=== PATIENT | female | born 1975 | race American Indian/Alaskan Native ===

== ENCOUNTER 2020-02-22 15:23 | Outpatient (CLI) | payer OTHER | END 2020-02-22 15:24 | disposition home or self-care (01) | LOC: SPVWC 15:23 | PROVIDERS: ATTEND Nurse Practitioner Family | DX: R92.8 Other abnormal and inconclusive findings on diagnostic imaging of breast (principal) | CPT/HCPCS: 77066 ==

== ENCOUNTER 2020-03-07 08:45 | Outpatient (CLI) | payer OTHER ==
--- NOTE | 2020-03-07 11:06 | Ultrasound Report ---
RIGHT DIGITAL DIAGNOSTIC MAMMOGRAM WITH CAD , 03/07/2020 BILATERAL LIMITED BREAST ULTRASOUND CLINICAL INFORMATION / INDICATION: Patient has palpable lumps bilaterally. Patient also had abnormal finding on the recent right mammogram, unrelated to palpable abnormality. TECHNIQUE: Digital right mammographic imaging was performed. Spot compression views were obtained. Li mited ultrasound was performed. This examination was interpreted with the benefit of Computer-Aided D etection (CAD) analysis. COMPARISON: Prior mammograms, 12/21/2018 and 02/22/2020 FINDINGS: Breast Density: There are scattered areas of fibroglandular density. MAMMOGRAPHIC FINDINGS:. The abnormal finding on recent mammogram in the upper outer quadrant of the r ight breast appears much less striking on spot compression views and appears grossly unremarkable fro m 2019 mammogram. I suspect this is benign fibroglandular tissue. ULTRASOUND FINDINGS: Targeted ultrasound evaluation was performed of the area of interest. Left breast: Targeted sonographic evaluation in the left medial breast, corresponding to palpable are a as directed by the patient, does not demonstrate any cystic or solid mass or suspicious area of sha dowing. There is no sonographic or mammographic correlate for the palpable left breast lump. Right breast: In the upper inner quadrant of the right breast, corresponding to the palpable lump as directed by the patient, there is no solid or cystic mass or suspicious area of shadowing. There is n o mammographic or sonographic correlation to account for the right breast palpable lump. However, in the 9:00 location of the right breast, 7 cm from the nipple, there is an oval hypoechoic smoothly marginated mass measuring approximately 8 x 4 mm. I suspect this correlates with focal asymm etry noted on the initial screening mammogram. IMPRESSION: Probably benign findings. 1. Focal benign-appearing hypoechoic mass is present in the right breast at 9:00, most likely correla ting with mammographic findings. The appearance is most suggestive of fibrocystic tissue. I would rec ommend 6 month follow-up right mammogram and ultrasound. 2. No mammographic or sonographic correlates are identified for the bilateral palpable lumps. Please correlate clinically. Follow up recommendation: 6 month follow-up right mammogram and right breast ultrasound. BI-RADS Category 3: Probably Benign. Followup in 6 months. A "normal" or negative report should not discourage follow up or biopsy of a clinically significant f inding. A written summary of these findings will be mailed to the patient. The patient will be entered into a mammography reporting system which will generate a reminder letter for the patient's next appointmen t at the appropriate interval. According to the [employer], yearly mammograms are recommended starting at age 40 and continuing as long as a woman is in good health. Breast MRI is recommended for women with an ary roximately 20-25% or greater lifetime risk of breast cancer, including women with a strong family his tory of breast or ovarian cancer and women who have been treated for Hodgkin's disease. Signer Name: Arcelia Moyer MD Signed: 03/07/2020 11:01 AM Workstation Name: [employer]
== END 2020-03-07 08:46 | disposition home or self-care (01) ==
LOC: SPVWC 08:45
PROVIDERS: ATTEND Nurse Practitioner Family
DX: N63.12 Unspecified lump in the right breast, upper inner quadrant (principal); R92.8 Other abnormal and inconclusive findings on diagnostic imaging of breast

== ENCOUNTER 2021-02-22 08:24 | Outpatient (CLI) | payer OTHER ==
--- NOTE | 2021-02-22 09:16 | Ultrasound Report ---
BILATERAL DIGITAL DIAGNOSTIC MAMMOGRAM WITH CAD CONVENTIONAL, 02/22/2021 RIGHT LIMITED BREAST ULTRASOUND CLINICAL INFORMATION / INDICATION: Follow-up ABN MAMMO F/U TECHNIQUE: Digital bilateral mammographic imaging was performed. Limited ultrasound was performed. Th is examination was interpreted with the benefit of Computer-Aided Detection (CAD) analysis. COMPARISON: 03/07/2020, 12/21/2018 FINDINGS: Breast Density: There are scattered areas of fibroglandular density. MAMMOGRAPHIC FINDINGS: No dominant mass, suspicious calcifications, or architectural distortion in ei ther breast. The breast architecture is stable compared to previous mammograms. ULTRASOUND FINDINGS: Targeted ultrasound evaluation was performed of the area of interest. Ultrasou nd imaging of the right breast at the 9:00 position, 7 cm from the nipple redemonstrates an oval, pre dominantly hypoechoic lesion measuring 0.6 x 0.6 x 0.3 cm. The appearance of this lesion is not signi ficant change compared to previous ultrasound and likely represents benign fibroglandular tissue. IMPRESSION: No mammographic or sonographic evidence of malignancy. Unchanged hypoechoic area within t he right breast likely representing normal fibroglandular tissue versus cluster of cysts. Follow up recommendation: Routine yearly BI-RADS Category 2: Benign. A "normal" or negative report should not discourage follow up or biopsy of a clinically significant f inding. A written summary of these findings will be mailed to the patient. The patient will be entered into a mammography reporting system which will generate a reminder letter for the patient's next appointmen t at the appropriate interval. According to the [employer], yearly mammograms are recommended starting at age 40 and continuing as long as a woman is in good health. Breast MRI is recommended for women with an ary roximately 20-25% or greater lifetime risk of breast cancer, including women with a strong family his tory of breast or ovarian cancer and women who have been treated for Hodgkin's disease. Signer Name: Massimo Olsen DO Signed: 02/22/2021 9:11 AM Workstation Name: [id number]
== END 2021-02-22 08:25 | disposition home or self-care (01) ==
LOC: SPVWC 08:24
PROVIDERS: ATTEND Family Medicine
DX: R92.8 Other abnormal and inconclusive findings on diagnostic imaging of breast (principal)
CPT/HCPCS: 77066